=== PATIENT | female | born 1930 | race Caucasian/White ===

== ENCOUNTER 2017-08-31 12:17 | Emergency (ER) | payer MEDICARE, OTHER ==
[2017-08-31 13:02] VITALS: RESP 18
[2017-08-31] MEDS ORDERED: Bacitracin 500 Units/gm Oint Foilpak UD TOP STA (13:55)
[2017-08-31] MEDS ORDERED: Tetanus/Diphtheria Toxoids 0.5 ml Syringe IM ONE ×2 (13:55→14:06)
--- NOTE | 2017-08-31 14:04 | C.PDOC ---
History Of Present Illness 87yo female with history of high cholesterol, hypertension, presents to ED for evaluation after she had a mechanical fall and injured her head and her left hand. Patient reports she struck the right front side of her head and her left 4th digit. She denies any weakness, numbness, tingling, loss of consciousness due to the fall; patient was able to ambulate after the fall. She has no other medical complaints. - HPI Time Seen by Provider: 08/31/17 12:59 Chief Complaint (Nursing): Trauma History Per: Patient, Family History/Exam Limitations: no limitations Onset/Duration Of Symptoms: Mins Injury Occurred (Timing): Just Before Arrival Location Of Injury: Right: Head, Left: Hand Additional History Per: Patient Past Medical History Reviewed: Historical Data, Nursing Documentation, Vital Signs Vital Signs: Last Vital Signs Temp 98.7 F 08/31/17 16:28 Pulse 65 08/31/17 16:28 Resp 18 08/31/17 16:28 BP 136/74 08/31/17 16:28 Pulse Ox 96 08/31/17 17:22 - Medical History PMH: Depression, Gastrointestinal Ulcer, HTN, Hypercholesterolemia Denies: Chronic Kidney Disease Surgical History: Cholecystectomy (30 yrs. ago) Family History: States: Unknown Family Hx - Social History Hx Tobacco Use: No Hx Alcohol Use: No Hx Substance Use: No - Immunization History Hx Tetanus Toxoid Vaccination: No Hx Influenza Vaccination: Yes Hx Pneumococcal Vaccination: Yes Review Of Systems Except As Marked, All Systems Reviewed And Found Negative. Musculoskeletal: Positive for: Hand Pain (left) Neurological: Positive for: Other (head injury). Negative for: Weakness, Numbness Physical Exam - Physical Exam Appears: Non-toxic, No Acute Distress Skin: Normal Color, Warm, Dry Head: Normacephalic, No Tenderness, Abrasion (right frontal scalp) Eye(s): bilateral: Normal Inspection, PERRL, EOMI Ear(s): Bilateral: Normal Nose: Normal Oral Mucosa: Moist Neck: Normal ROM, Supple Chest: Symmetrical Cardiovascular: Rhythm Regular Respiratory: Normal Breath Sounds Gastrointestinal/Abdominal: Normal Exam, Soft, No Tenderness Back: Normal Inspection, No Vertebral Tenderness Extremity: Normal ROM (FROM of bilateral lower extremities; FROM of all digits on left hand), No Tenderness (bilateral hips nontender), No Deformity, No Swelling, Other (abrasion noted to left 4th digit) Neurological/Psych: Oriented x3 ED Course And Treatment O2 Sat by Pulse Oximetry: 96 (RA) Pulse Ox Interpretation: Normal - Other Rad XR Hips Bilateral X-Ray: Viewed By Me Interpretation: No fractures or dislocations XR Left hand X-Ray: Viewed By Me Interpretation: No fractures or dislocations - CT Scan/US CT Head Other Rad Studies (CT/US): Radiology Report Reviewed CT/US Interpretation: PROCEDURE: CT HEAD WITHOUT CONTRAST. HISTORY: Status post fall. COMPARISON: None available. TECHNIQUE: Axial computed tomography images were obtained through the head/brain without intravenous contrast. Radiation dose: Total exam DLP = 875.64 mGy-cm. This CT exam was performed using one or more of the following dose reduction techniques: Automated exposure control, adjustment of the mA and/or kV according to patient size, and/ or use of iterative reconstruction technique. FINDINGS: HEMORRHAGE: No intracranial hemorrhage. BRAIN: Mild moderate diffuse/confluent chronic white matter ischemic changes seen extending peripherally into the deep and subcortical white matter both cerebral hemispheres. Additionally, there are a siphons few scattered chronic bilateral basal nuclei lacunar type infarcts. Mild vascular calcifications both carotid siphons. Moderate - fairly significant generalized volume loss. VENTRICLES: No obstructive hydrocephalus. CALVARIUM: No acute calvarial fractures. Mild right frontal scalp swelling. PARANASAL SINUSES: Frontal sinuses are hypoplastic. Remaining visualized sinuses are relatively well-developed. Minor mucosal thickening seen within the ethmoid air complex extending slightly into the inferior margin of the frontal sinus. MASTOID AIR CELLS: Unremarkable as visualized. No inflammatory changes. OTHER FINDINGS: Changes of bilateral cataract surgery. Tiny senile calcifications seen along the along the medial and lateral margins of both globes at the insertion sites of the extraocular musculature. IMPRESSION: No acute intracranial hemorrhage. Mild to moderate chronic white matter ischemic changes with scattered chronic bilateral basal nuclei lacunar type infarcts. Moderate -significant generalized volume loss. Mild right frontal scalp contusion/ soft tissue swelling. Progress Note: CT Head w/o contrast, XR left hand, XR bilateral hips ordered. Patient given TDAP booster and bacitracin applied to abrasion on right frontal scalp. 16:[address] and XR findings, stable for discharge home. Instructed to take medications as prescribed and to follow up with PCP in 2-3 days. Disposition - Disposition Disposition: HOME/ ROUTINE Disposition Time: 16:12 Condition: STABLE Additional Instructions: Follow up with PMD within 1-2 days. Return to ED if feel worse. Prescriptions: Bacitracin OINT 1 applic TP TID #45 g Instructions: Contusion (DC), Minor Head Injury (DC), Skin Abrasions (DC) Forms: [employer] ([place]) - Clinical Impression Clinical Impression: Fall, Multiple contusions, Multiple abrasions, Minor head injury - PA / [employer] / Resident Statement MD/DO has reviewed & agrees with the documentation as recorded. - Scribe Statement The provider has reviewed the documentation as recorded by the Scribe (Moira rBay) Provider Attestation: All medical record entries made by the Scribe were at my direction and personally dictated by me. I have reviewed the chart and agree that the record accurately reflects my personal performance of the history, physical exam, medical decision making, and the department course for this patient. I have also personally directed, reviewed, and agree with the discharge instructions and disposition.
[2017-08-31] MEDS ORDERED: Bacitracin 500 Units/gm Oint Foilpak UD ONE (14:05)
--- NOTE | 2017-08-31 15:39 | CT ---
PROCEDURE: CT HEAD WITHOUT CONTRAST. HISTORY: Status post fall COMPARISON: None available. TECHNIQUE: Axial computed tomography images were obtained through the head/brain without intravenous contrast. Radiation dose: Total exam DLP = 875.64 mGy-cm. This CT exam was performed using one or more of the following dose reduction techniques: Automated exposure control, adjustment of the mA and/or kV according to patient size, and/or use of iterative reconstruction technique. FINDINGS: HEMORRHAGE: No intracranial hemorrhage. BRAIN: Mild moderate diffuse/confluent chronic white matter ischemic changes seen extending peripherally into the deep and subcortical white matter both cerebral hemispheres. Additionally, there are a siphons few scattered chronic bilateral basal nuclei lacunar type infarcts. Mild vascular calcifications both carotid siphons. Moderate - fairly significant generalized volume loss VENTRICLES: No obstructive hydrocephalus. CALVARIUM: No acute calvarial fractures. Mild right frontal scalp swelling. PARANASAL SINUSES: Frontal sinuses are hypoplastic. Remaining visualized sinuses are relatively well-developed. Minor mucosal thickening seen within the ethmoid air complex extending slightly into the inferior margin of the frontal sinus. MASTOID AIR CELLS: Unremarkable as visualized. No inflammatory changes. OTHER FINDINGS: Changes of bilateral cataract surgery. Tiny senile calcifications seen along the along the medial and lateral margins of both globes at the insertion sites of the extraocular musculature. IMPRESSION: No acute intracranial hemorrhage. Mild to moderate chronic white matter ischemic changes with scattered chronic bilateral basal nuclei lacunar type infarcts. Moderate -significant generalized volume loss. Mild right frontal scalp contusion/ soft tissue swelling.
[2017-08-31 16:33] VITALS: BP 136/74; PULSE 65; TEMP 98.7
[2017-08-31 17:19] VITALS: O2SAT 96
--- NOTE | 2017-08-31 17:25 | RAD ---
PROCEDURE: Left Hand Radiographs. HISTORY: Fall. COMPARISON: None. FINDINGS: BONES: Normal. No fracture. JOINTS: Mild multi articular degenerative osteoarthritis. SOFT TISSUES: Normal. OTHER FINDINGS: None. IMPRESSION: No definite evidence of acute displaced fracture nor dislocation. If symptoms persist or occult fracture suspected clinically consider repeat radiographs in 5-10 days as most fractures should become radiographically evident in this timeframe. . Mild multi articular degenerative osteoarthritis
--- NOTE | 2017-08-31 17:36 | RAD ---
PROCEDURE: Pelvis bilateral hips dated 08/31/2017 HISTORY: Status post fall COMPARISON: Comparison made with prior CT scan abdomen and pelvis 03/18/2013 which image the pelvis and hips in 3 planes. FINDINGS: BONES: No evidence of acute displaced fracture nor dislocation. The osseous structures appear intact. Both femoral heads appropriately located within the respective acetabula. Mild degenerative changes both hip joints. There is also mild sclerotic changes of the symphysis. Degenerative spondylosis lumbosacral spine. SOFT TISSUES: Note again made of a linear radiopaque density within soft tissues left upper buttock. IMPRESSION: No fracture seen. If symptoms persist or occult fracture suspected clinically recommend followup CT scan.
== END 2017-08-31 16:33 | disposition home or self-care (01) ==
LOC: C.ER 12:17
DX: S00.03XA Contusion of scalp, initial encounter (principal); S00.01XA Abrasion of scalp, initial encounter; S60.415A Abrasion of left ring finger, initial encounter; W18.30XA Fall on same level, unspecified, initial encounter

== ENCOUNTER 2017-09-02 11:17 | Emergency (ER) | payer MEDICARE, OTHER ==
[2017-09-02 11:20] VITALS: BMI 28.3
[2017-09-02 12:15] LABS: URINE BILIRUBIN NEGATIVE (NEGATIVE); URINE BLOOD NEGATIVE (NEGATIVE); URINE CLARITY Clear (Clear); URINE COLOR Straw (YELLOW); URINE GLUCOSE (UA) NORMAL (Normal); URINE LEUKOCYTE ESTERASE NEG Leu/uL (Negative); URINE PROTEIN NEGATIVE (NEGATIVE); URINE UROBILINOGEN NORMAL mg/dL (0.2-1.0)
--- NOTE | 2017-09-02 12:34 | C.PDOC ---
History Of Present Illness 87 y/o female presents to the ER for evaluation after she had blood-tinged urine yesterday. Patient was seen in [facility] ER on 08/31/17 s/p fall at home and she had X -rays of the Left Hand and Hips which were negative. Patient states that she had blood tinged urine yesterday, not today. Patient was concerned so she decided to visit the ER for evaluation. Patient denies having abdominal pain , vomiting, diarrhea, and dysuria. Time Seen by Provider: 09/02/17 11:55 Chief Complaint (Nursing): Female Genitourinary History Per: Patient History/Exam Limitations: no limitations Onset/Duration Of Symptoms: Days Current Symptoms Are (Timing): Gone Severity: Moderate Past Medical History Reviewed: Historical Data, Nursing Documentation, Vital Signs Vital Signs: Last Vital Signs Temp 98.7 F 09/02/17 12:59 Pulse 66 09/02/17 12:59 Resp 20 09/02/17 12:59 BP 143/66 09/02/17 12:59 Pulse Ox 98 09/02/17 14:20 - Medical History PMH: Depression, Gastrointestinal Ulcer, HTN, Hypercholesterolemia Denies: Chronic Kidney Disease Surgical History: Cholecystectomy (30 yrs. ago) Family History: States: No Known Family Hx - Social History Hx Tobacco Use: No Hx Alcohol Use: No Hx Substance Use: No - Immunization History Hx Tetanus Toxoid Vaccination: No Hx Influenza Vaccination: Yes Hx Pneumococcal Vaccination: Yes Review Of Systems Except As Marked, All Systems Reviewed And Found Negative. Constitutional: Negative for: Fever, Chills Gastrointestinal: Negative for: Abdominal Pain, Diarrhea Genitourinary: Negative for: Dysuria Physical Exam - Physical Exam Appears: Non-toxic, No Acute Distress Skin: Normal Color, Warm Head: Atraumatic, Normacephalic Eye(s): bilateral: Normal Inspection, EOMI Nose: Normal Oral Mucosa: Moist Neck: Normal ROM, Supple Chest: Symmetrical Cardiovascular: Rhythm Regular Respiratory: Normal Breath Sounds, No Rales, No Rhonchi, No Wheezing Gastrointestinal/Abdominal: Normal Exam, Soft, No Tenderness Extremity: Normal ROM, No Tenderness, No Swelling Extremity: Bilateral: Hips Non-Tender Pulses: Left Dorsalis Pedis: Normal, Right Dorsalis Pedis: Normal Neurological/Psych: Oriented x3, Normal Speech ED Course And Treatment O2 Sat by Pulse Oximetry: 98 (RA) Pulse Ox Interpretation: Normal Medical Decision Making Medical Decision Making: UA was clean, no blood or infection. prior record reviewed and all imaging showed no acute abnormality Patient stable for discharge Disposition Counseled Patient/Family Regarding: Need For Followup - Disposition Disposition: HOME/ ROUTINE Disposition Time: 12:33 Condition: STABLE Additional Instructions: Urine was clean Follow up with your doctor Forms: Gen Discharge Inst [place] - POA Present On Arrival: None - Clinical Impression Clinical Impression: Urine abnormality - PA / [employer] / Resident Statement MD/DO has reviewed & agrees with the documentation as recorded. - Scribe Statement The provider has reviewed the documentation as recorded by the Andrewsibe Chani Pisano Provider Attestation All medical record entries made by the Andrewsibe were at my direction and personally dictated by me. I have reviewed the chart and agree that the record accurately reflects my personal performance of the history, physical exam, medical decision making, and the department course for this patient. I have also personally directed, reviewed, and agree with the discharge instructions and disposition.
[2017-09-02 13:00] VITALS: BP 143/66; PULSE 66; RESP 20; TEMP 98.7
[2017-09-02 14:13] VITALS: O2SAT 98
== END 2017-09-02 13:01 | disposition home or self-care (01) ==
LOC: C.ER 11:17
DX: R82.90 Unspecified abnormal findings in urine (principal)